=== PATIENT | female | born 1970 | race Caucasian/White ===

== ENCOUNTER → 2018-07-18 16:33 | Outpatient (CLI) | payer OTHER, SELFPAY ==
[2018-07-24 10:52] LABS: HPV Reflexed? NOT INDICATED
== END ==
PROVIDERS: Visit Provider Obstetrics & Gynecology
DX: Z12.4 Encounter for screening for malignant neoplasm of cervix (principal)
CPT/HCPCS: 88175; G0145

== ENCOUNTER → 2018-09-03 14:33 | Outpatient (CLI) | payer OTHER, SELFPAY ==
--- NOTE | 2018-09-03 14:36 | BI_ITS ---
MAMMOGRAPHY - BILATERAL SCREENING REASON FOR EXAM: Female, 47 years old. Routine annual screening examination. PERTINENT HISTORY: Mother with breast cancer. Aunt with breast cancer. TECHNIQUE: Digital bilateral breast nick (3D mammographic acquisition) in the CC and MLO projections. 2-D mediolateral oblique (MLO) and craniocaudad (CC) views of both breasts were obtained. CAD: Full Field Digital Mammography with Computer Added Detection was performed. COMPARISON: Comparison is made with prior study dated March 30, 2015 and March 12, 2013. FINDINGS: Breast Composition: The breasts are heterogeneously dense, which may obscure small masses. There are no dominant masses or suspicious calcifications. No other significant abnormalities are identified. There has been no significant change since the prior study. BI/SCREENING MAMM (CAD), BILAT IMPRESSION: Stable bilateral screening mammogram. Yearly follow-up mammogram recommended. (A) ASSESSMENT CATEGORY: BIRADS Category 1: Negative. A letter regarding these results will be sent to the patient by the facility within 30 days. Approximately 10% of breast cancers are not detected by mammography. A normal mammogram should not delay biopsy of a clinically suspicious abnormality. [id number] Electronically Signed: Naveen Jenkins MD at 15:49 EST Tel [phone], Service support ,
== END ==
PROVIDERS: Family Provider Family Medicine; PCP Family Medicine; Referring Provider Obstetrics & Gynecology; Visit Provider Obstetrics & Gynecology
DX: Z12.31 Encounter for screening mammogram for malignant neoplasm of breast (principal)
CPT/HCPCS: 77063; 77067

== ENCOUNTER → 2019-02-22 16:10 | Outpatient (CLI) | payer OTHER, SELFPAY ==
[2018-09-12 14:27] VITALS: BMI 28.2
[2019-02-22 18:12] LABS: Hemoglobin A1c 5.5 % (4.2-6.3); Thyroid Stim Hormone (TSH) 3.86 uIU/mL (0.358-3.74)
== END ==
PROVIDERS: Family Provider Family Medicine; PCP Family Medicine; Referring Provider Family Medicine; Visit Provider Family Medicine
DX: E03.9 Hypothyroidism, unspecified (principal); R51 Headache
CPT/HCPCS: 36415; 83036; 84443

== ENCOUNTER → 2020-04-28 15:20 | Outpatient (CLI) | payer OTHER, SELFPAY ==
[2020-04-28 14:52] VITALS: BMI 28.2
[2020-04-28 17:15] LABS: T4 Free Direct 1.21 ng/dL (0.76-1.46)
== END ==
PROVIDERS: PCP Family Medicine; Referring Provider Family Medicine; Visit Provider Family Medicine
DX: E03.9 Hypothyroidism, unspecified (principal)
CPT/HCPCS: 36415; 84439; 84443

== ENCOUNTER → 2020-12-21 | Outpatient (CLI) | payer OTHER, SELFPAY ==
[2020-04-28 14:52] VITALS: BMI 28.2
[2020-12-24 15:43] LABS: HPV Reflexed? NOT INDICATED
== END | disposition home or self-care (01) ==
LOC: LABSPEC 17:07
PROVIDERS: PCP Family Medicine; Visit Provider Obstetrics & Gynecology
DX: Z12.4 Encounter for screening for malignant neoplasm of cervix (principal)
CPT/HCPCS: 88175; G0145

== ENCOUNTER → 2020-12-31 14:11 | Outpatient (CLI) | payer OTHER, SELFPAY ==
[2020-12-29 16:11] VITALS: BMI 28.5
[2020-12-31 15:56] LABS: Cholesterol 228 mg/dL (200); Follicle Stimulating Hormone 3.5 mIU/mL; High Density Lipoprotein 75 mg/dL; Luteinizing Hormone 4.4 mIU/mL; Thyroid Stim Hormone (TSH) 4.06 uIU/mL (0.358-3.74); Triglycerides 195 mg/dL; Very Low Density Lipoprotein 39 mg/dL (5-40)
== END ==
PROVIDERS: PCP Family Medicine; Referring Provider Family Medicine; Visit Provider Family Medicine
DX: N95.1 Menopausal and female climacteric states (principal); E03.9 Hypothyroidism, unspecified; E78.5 Hyperlipidemia, unspecified
CPT/HCPCS: 36415; 80061; 83001; 83002; 84443

== ENCOUNTER → 2021-01-13 15:36 | Outpatient (CLI) | payer OTHER, SELFPAY ==
[2020-12-29 16:11] VITALS: BMI 28.5
--- NOTE | 2021-01-13 15:37 | BI_ITS ---
MAMMOGRAPHY - BILATERAL SCREENING REASON FOR EXAM: Female, 50 years old. Routine annual screening examination. PERTINENT HISTORY: Grandmother with breast cancer. TECHNIQUE: Digital bilateral breast sterling (3D mammographic acquisition) in the CC and MLO projections. 2-D mediolateral oblique (MLO) and craniocaudad (CC) views of both breasts were obtained. CAD: Full Field Digital Mammography with Computer Added Detection was performed. COMPARISON: Comparison is made with prior study dated 09/03/2018 and 03/30/2015. FINDINGS: Breast Composition: The breasts are heterogeneously dense, which may obscure small masses. There are no dominant masses or suspicious calcifications. No other significant abnormalities are identified. There has been no significant change since the prior study. BI/SCRN MAMM (CAD)W/STERLING BILAT IMPRESSION: Stable bilateral screening mammogram. Yearly follow-up mammogram recommended. (A) ASSESSMENT CATEGORY: BIRADS Category 1: Negative. A letter regarding these results will be sent to the patient by the facility within 30 days. Approximately 10% of breast cancers are not detected by mammography. A normal mammogram should not delay biopsy of a clinically suspicious abnormality. [id number] Electronically Signed: Naveen Jenkins MD at 8:01 EDT , Service support ,
== END ==
PROVIDERS: PCP Family Medicine; Referring Provider Obstetrics & Gynecology; Visit Provider Obstetrics & Gynecology
DX: Z12.31 Encounter for screening mammogram for malignant neoplasm of breast (principal); Z80.3 Family history of malignant neoplasm of breast
CPT/HCPCS: 77063; 77067

== ENCOUNTER → 2021-06-03 12:42 | Outpatient (CLI) | payer OTHER, SELFPAY ==
[2021-06-03 11:26] VITALS: BMI 28.5
--- NOTE | 2021-06-03 12:46 | RAD_ITS ---
STUDY: X-RAY - RIGHT FOOT CLINICAL: Medial right foot pain for almost a month and a half, no specific injury. TECHNIQUE: 3 view(s) of the foot. COMPARISON: None. FINDINGS: There is a small plantar calcaneal enthesophyte. Otherwise, unremarkable talus, calcaneus, and tarsal bones. Normal visualized subtalar, talonavicular, calcaneocuboid, tarsal and tarsometatarsal articulations. Normal metatarsi. Normal metatarsophalangeal joint of the great toe. Normal tibial and fibular sesamoid bones. Normal interphalangeal joint of the great toe. Normal phalanges of the great toe. Normal second through fifth metatarsophalangeal joints. Normal interphalangeal joints and phalanges of the lesser toes. The soft tissue structures are unremarkable. RAD/Foot min 3 Views IMPRESSION: Small plantar calcaneal enthesophyte. Otherwise, unremarkable x-ray examination of the right foot. Electronically Signed: Cachorro Tolentino MD at 13:16 EDT Tel , Service support ,
== END ==
PROVIDERS: PCP Family Medicine; Referring Provider Family Medicine; Visit Provider Family Medicine
DX: M79.671 Pain in right foot (principal)
CPT/HCPCS: 73630

== ENCOUNTER 2021-12-02 13:03 | Outpatient (CLI) | payer BC, SELFPAY ==
[2021-12-02 14:19] LABS: T4 Free Direct 1.14 ng/dL (0.76-1.46); Thyroid Stim Hormone (TSH) 4.45 uIU/mL (0.358-3.74)
== END 2021-12-02 23:59 | disposition short-term general hospital (02) ==
LOC: BIMLAB 13:04
PROVIDERS: PCP Family Medicine; Referring Provider Family Medicine; Visit Provider Family Medicine
DX: E03.9 Hypothyroidism, unspecified (principal)
CPT/HCPCS: 36415; 82306; 84439; 84443

== ENCOUNTER → 2022-02-22 | Outpatient (CLI) | payer BC, SELFPAY ==
--- NOTE | 2022-02-22 16:02 | BI_ITS ---
MAMMOGRAPHY - BILATERAL SCREENING REASON FOR EXAM: Female, 51 years old. Routine annual screening examination. PERTINENT HISTORY: Mother with breast cancer. TECHNIQUE: Digital bilateral breast sterling (3D mammographic acquisition) in the CC and MLO projections. 2-D mediolateral oblique (MLO) and craniocaudad (CC) views of both breasts were obtained. CAD: Full Field Digital Mammography with Computer Added Detection was performed. COMPARISON: Comparison is made with prior study dated 01/13/2021 and 09/03/2018. FINDINGS: Breast Composition: The breasts are heterogeneously dense, which may obscure small masses. There are no dominant masses or suspicious calcifications. No other significant abnormalities are identified. There has been no significant change since the prior study. BI/SCRN MAMM (CAD)W/STERLING BILAT IMPRESSION: Stable bilateral screening mammogram. Yearly follow-up mammogram recommended. (A) ASSESSMENT CATEGORY: BIRADS Category 1: Negative. A letter regarding these results will be sent to the patient by the facility within 30 days. Approximately 10% of breast cancers are not detected by mammography. A normal mammogram should not delay biopsy of a clinically suspicious abnormality. [id number] Electronically Signed: Naveen Jenkins MD at 8:44 EDT ,
== END | disposition home or self-care (01) ==
LOC: OPBI 15:56
PROVIDERS: PCP Family Medicine; Visit Provider Obstetrics & Gynecology
DX: Z12.31 Encounter for screening mammogram for malignant neoplasm of breast (principal)
CPT/HCPCS: 77063; 77067

== ENCOUNTER → 2023-01-26 | Outpatient (CLI) | payer BC, SELFPAY ==
[2023-01-26 17:24] LABS: ALB/GLOB Ratio 0.9 RATIO (0.9-2.4); AST(SGOT) 17 U/L (15-37); Alanine Aminotransfer ALT/SGPT 31 U/L (13-56); Albumin, Serum 3.3 g/dL (3.2-5.0); Alkaline Phosphatase 68 U/L (45-117); Anion Gap 6 (5-15); BUN 14 mg/dL (7-18); BUN/Creat Ratio 19.4 RATIO (10-20); Calcium,Total 8.7 mg/dL (8.5-10.1); Chloride 107 mmol/L (98-107); Creatinine, Serum 0.72 mg/dL (0.55-1.02); EST Glomerular Filtration Rate 91 mL/min (>60); Est Glom Filt Rate - Afr Amer 110 mL/min (>60); Globulin 3.7 g/dL (2.2-4.2); Glucose 105 mg/dL (74-106); Potassium 3.5 mmol/L (3.5-5.1); Sodium Level 138 mmol/L (136-145); T4 Free Direct 1.22 ng/dL (0.76-1.46); Thyroid Stim Hormone (TSH) 1.84 uIU/mL (0.358-3.74)
== END | disposition home or self-care (01) ==
LOC: BIMLAB 14:52
PROVIDERS: PCP Family Medicine; Visit Provider Family Medicine
DX: E03.9 Hypothyroidism, unspecified (principal)
CPT/HCPCS: 36415; 80053; 84439; 84443

== ENCOUNTER → 2023-02-23 | Outpatient (CLI) | payer BC, SELFPAY ==
--- NOTE | 2023-02-23 15:04 | BI_ITS ---
MAMMOGRAPHY - BILATERAL SCREENING REASON FOR EXAM: Female, 52 years old. Routine annual screening examination. PERTINENT HISTORY: Mother with breast cancer. TECHNIQUE: Digital bilateral breast sterling (3D mammographic acquisition) in the CC and MLO projections. 2-D mediolateral oblique (MLO) and craniocaudad (CC) views of both breasts were obtained. CAD: Full Field Digital Mammography with Computer Added Detection was performed. COMPARISON: Comparison is made with prior study dated February 22, 2022 and January 13, 2021. FINDINGS: Breast Composition: The breasts are heterogeneously dense, which may obscure small masses. There are no dominant masses or suspicious calcifications. No other significant abnormalities are identified. There has been no significant change since the prior study. BI/SCRN MAMM (CAD)W/STERLING BILAT IMPRESSION: Stable bilateral screening mammogram. Yearly follow-up mammogram recommended. (A) ASSESSMENT CATEGORY: BIRADS Category 1: Negative. A letter regarding these results will be sent to the patient by the facility within 30 days. Approximately 10% of breast cancers are not detected by mammography. A normal mammogram should not delay biopsy of a clinically suspicious abnormality. [id number] Electronically Signed: Naveen Jenkins MD at 8:49 EDT ,
== END | disposition home or self-care (01) ==
LOC: OPBI 15:02
PROVIDERS: PCP Family Medicine; Referring Provider Nurse Practitioner Women's Health; Visit Provider Nurse Practitioner Women's Health
DX: Z12.31 Encounter for screening mammogram for malignant neoplasm of breast (principal)
CPT/HCPCS: 77063; 77067

== ENCOUNTER → 2023-11-01 | Outpatient (CLI) | payer BC, SELFPAY ==
[2023-11-01 17:17] LABS: ALB/GLOB Ratio 0.8 RATIO (0.9-2.4); AST(SGOT) 24 U/L (15-37); Alanine Aminotransfer ALT/SGPT 27 U/L (13-56); Albumin, Serum 3.4 g/dL (3.2-5.0); Alkaline Phosphatase 78 U/L (45-117); Anion Gap 7 (5-15); BUN 10 mg/dL (7-18); BUN/Creat Ratio 17.2 RATIO (10-20); Calcium,Total 8.5 mg/dL (8.5-10.1); Chloride 106 mmol/L (98-107); Cholesterol 225 mg/dL (200); Creatinine, Serum 0.58 mg/dL (0.55-1.02); EST Glomerular Filtration Rate 116 mL/min (>60); Est Glom Filt Rate - Afr Amer 140 mL/min (>60); Glucose 84 mg/dL (74-106); High Density Lipoprotein 69 mg/dL; Potassium 3.7 mmol/L (3.5-5.1); Protein, Total 7.4 g/dL (6.4-8.2); Sodium Level 139 mmol/L (136-145); Thyroid Stim Hormone (TSH) 2.55 uIU/mL (0.358-3.74); Triglycerides 168 mg/dL; Very Low Density Lipoprotein 34 mg/dL (5-40)
== END | disposition home or self-care (01) ==
PROVIDERS: PCP Family Medicine; Visit Provider Family Medicine
DX: E03.9 Hypothyroidism, unspecified (principal); G43.909 Migraine, unspecified, not intractable, without status migrainosus
CPT/HCPCS: 36415; 80053; 80061; 84443

== ENCOUNTER → 2024-03-12 | Outpatient (CLI) | payer BC, SELFPAY ==
--- NOTE | 2024-03-12 09:44 | BI_ITS ---
MAMMOGRAPHY - BILATERAL SCREENING REASON FOR EXAM: Female, 53 years old. Routine annual screening examination. PERTINENT HISTORY: Mother with breast cancer. Aunt with breast cancer. TECHNIQUE: Digital bilateral breast sterling (3D mammographic acquisition) in the CC and MLO projections. 2-D mediolateral oblique (MLO) and craniocaudad (CC) views of both breasts were obtained. CAD: Full Field Digital Mammography with Computer Added Detection was performed. COMPARISON: Comparison is made with prior study February 23, 2023 and February 22, 2022 FINDINGS: Breast Composition: The breasts are heterogeneously dense, which may obscure small masses. There are no dominant masses or suspicious calcifications. No other significant abnormalities are identified. There has been no significant change since the prior study. BI/SCRN MAMM (CAD)W/STERLING BILAT IMPRESSION: Stable bilateral screening mammogram. Yearly follow-up mammogram recommended. (A) ASSESSMENT CATEGORY: BIRADS Category 1: Negative. A letter regarding these results will be sent to the patient by the facility within 30 days. Approximately 10% of breast cancers are not detected by mammography. A normal mammogram should not delay biopsy of a clinically suspicious abnormality. [id number] Electronically Signed: Naveen Jenkins MD at 12:28 EDT ,
== END | disposition home or self-care (01) ==
LOC: OPBI 09:43
PROVIDERS: PCP Family Medicine; Referring Provider Nurse Practitioner Family; Visit Provider Nurse Practitioner Family
DX: Z12.31 Encounter for screening mammogram for malignant neoplasm of breast (principal)
CPT/HCPCS: 77063; 77067

== ENCOUNTER → 2024-11-06 | Outpatient (CLI) | payer BC, SELFPAY | END | disposition home or self-care (01) | LOC: BIMLAB 15:08 | PROVIDERS: PCP Family Medicine; Referring Provider Family Medicine; Visit Provider Family Medicine | DX: E03.9 Hypothyroidism, unspecified (principal) | CPT/HCPCS: 36415; 84443 ==

== ENCOUNTER → 2025-04-16 | Outpatient (CLI) | payer BC, SELFPAY ==
--- NOTE | 2025-04-16 11:47 | BI_ITS ---
EXAM: SCRN MAMM (CAD)W/STERLING BILAT DATE: 04/16/2025 CLINICAL HISTORY: F, Age 54 y/o , SCREENING BREAST CANCER RISK ASSESSMENT: Not calculated at this time TECHNIQUE: Bilateral screening digital breast tomosynthesis with 2D and 3D images. Computer aided detection. COMPARISON: Prior exam(s) dated 03/12/2024, 02/23/2023, 02/22/2022. FINDINGS: TISSUE DENSITY: The breast tissue is composed of scattered areas of fibroglandular density. Bilateral Breast Mammographic Findings: No significant masses, calcifications or other abnormalities are identified. BI/SCRN MAMM (CAD)W/STERLING BILAT IMPRESSION: There is no mammographic evidence of malignancy. OVERALL FINAL ASSESSMENT BI-RADS 1: NEGATIVE. RECOMMEND ANNUAL MAMMOGRAPHIC SCREENING. RECOMMENDATION: Routine annual follow-up in 1 Year A letter with findings and recommendations will be mailed to the patient. Reading Location: [id number]
--- OUTSIDE RECORDS SUMMARY | 2025-04-16 21:32 | XMS RPT_ITS | CCD ---
Author Organization [facility] Team Providers Care [employer] Developer Name Role Phone Dr. Jovani Wheeler Primary Care Provider Dr. Jovani Wheeler Attending Provider [phone] Dr. Jovani Wheeler Referring Provider [phone] Unavailable Primary Care Provider Unavailronnie e KOKO, CORRINE Attending Unavailable Liam, Jovani R Referring Unavailable Brown, Jovani R Primary Care Unavailable Brown, Jovani R Attending Unavailable Liam, Jovani R Primary Care Unavailable Jovani Wheeler Attending Unavailable Liam, Jovani R Referring Unavailable Brown, Jovani R Primary Care Unavailable [place] TIRE CHANGER, Corrine Attending Unavailable Koko TIRE CHANGER, Corrine Referring Unavailable Brown, Jovani R Referring Unavailable Brown, Jovani R Primary Care Unavailable Randal Saeed Attending Unavailable Jovani Wheeler Referring Unavailable Liam, Jovani R Primary Care Unavailable Jovani Wheeler R Attending Unavailable Medications Current Medications Medication Drug Class(es) Dates Sig (Normalized) Sig (Original) brain ocatne (3 sources) Start: 12-02-2021 brain ocatne A ctive PO December 02, 2021 1:40pm Start: 12-02-2021 End: 01-26-2023 brain ocatne Discontinued PO December 02, 2021 12:00am January 26, 2023 1:28pm Start: 12-02-2021 End: 01-26-2023 brain ocatne Discontinued PO December 02, 2021 1:00am January 26, 2023 2:28pm cholecalciferol 0.05 mg oral capsule (6 sources) Vitamin D Start: 12-29-2020 Cholecalcifero l, Vitamin D3, 50 mcg (2,000 unit) cap Take 50 mcg by mouth. 12/29/2020 Active coconut oil supplement (3 sources) Start: 06-03-2021 coconut oil ragland pplement Active PO June 03, 2021 11:23am Start: 06-03-2021 End: 01-26-2023 coconut oil supplement Disco ntinued PO June 02, 2021 11:00pm January 26, 2023 1:29pm Start: 06-03-2021 End: 01-26-2023 coconut oil supplement Disco ntinued PO June 03, 2021 12:00am January 26, 2023 2:29pm Collagen (3 sources) Start: 06-03-2021 collagen Activ e PO June 03, 2021 11:22am Start: 06-03-2021 collagen Activ e PO June 02, 2021 11:00pm Start: 06-03-2021 collagen Activ e PO June 03, 2021 12:00am COLLAGEN, BOVINE, TOPICAL (3 sources) Start: 06-03-2021 COLLAGEN, BOVI NE, TOPICAL Take by mouth. 06/03/2021 Active Start: 06-03-2021 COLLAGEN, BOVI NE, TOPICAL Take by mouth. 0 06/03/2021 Active cyanocobalamin, vitamin B-12 , (VITAMIN B-12 ORAL) (3 sources) cyanocobalamin, vitamin B-12, (VITAMIN B-12 ORAL) Take by mouth. Active cyanocobalamin, vitamin B-12, (VITAMIN B-12 ORAL) Take by mouth. 0 Active Desogestrel / Ethinyl Estradiol (8 sources) Progestin, Estrogen Start: 02-25-2025 End: 01-27-2026 take 1 tablet by mouth once KARIVA, 28, 0.15-0.02 mgx21 /0.01 mg x 5 per tablet Take 1 tablet by mouth every afternoon. 84 tablet 3 02/25/2025 01/27/2026 Active Start: 02-20-2024 End: 02-25-2025 take 1 tablet by mouth once KARIVA, 28, 0.15-0.02 mgx2 1 /0.01 mg x 5 per tablet Take 1 tablet by mouth every afternoon. 84 tablet 3 02/20/2024 02/25/2025 Discontinued Start: 02-20-2024 End: 01-21-2025 take 1 tablet by mouth once KARIVA, 28, 0.15-0.02 mgx2 1 /0.01 mg x 5 per tablet Take 1 tablet by mouth every afternoon. 84 tablet 3 02/20/2024 01/21/2025 Active Start: 10-29-2023 End: 02-20-2024 take 1 tablet by mouth once KARIVA, 28, 0.15-0.02 mgx2 1 /0.01 mg x 5 per tablet Take 1 tablet by mouth every afternoon. 0 10/29/2023 02/20/2024 Discontinued Start: 02-20-2018 take 0.15 tablet by mouth once daily Desog-E.Estradiol/E.Estradiol (Viorele (28)) 0.15-0.02 mgx21 /0.01 mg x 5 tablet Active 1 TABLET PO daily February 20, 2018 2:37pm Start: 02-20-2018 take 0.15 tablet by mouth once daily Desog-E.Estradiol/E.Estradiol (Viorele (28)) 0.15-0.02 mgx21 /0.01 mg x 5 tablet Active 1 TABLET PO daily February 19, 2018 11:00pm Start: 02-20-2018 take 0.15 tablet by mouth once daily Desog-E.Estradiol/E.Estradiol (Viorele (28)) 0.15-0.02 mgx21 /0.01 mg x 5 tablet Active 1 TABLET PO daily February 20, 2018 12:00am levothyroxine sodium 0.125 mg oral tablet (20 sources) l-Thyroxine Start: 01-30-2024 take 1 tablet by mouth once levothyroxine (SYNTHROID) 125 mcg tablet Take 1 tablet by mouth every afternoon. 01/30/2024 Active Start: 01-05-2021 End: 04-18-2023 take 125 ug by mouth once daily Levothyroxine Active 1 25 MCG PO DAILY April 18, 2023 10:48am Start: 12-07-2018 End: 01-05-2021 take 112 ug by mouth once daily Levothyroxine Disconti nued 112 MCG PO DAILY May 12, 2020 7:17am January 05, 2021 12:35pm Start: 02-20-2018 End: 12-07-2018 take 1 capsule by mouth once daily levothyroxine 112 mcg capsule Discontinued 112 MCG PO daily December 04, 2018 2:27pm December 07, 2018 4:54pm Start: 12-28-2016 End: 02-20-2018 take 100 ug by mouth once daily Levothyroxine Disconti nued 100 MCG PO DAILY December 28, 2016 12:00am February 20, 2018 1:36pm Magnesium (6 sources) Start: 12-29-2020 take 250 mg by mouth once daily Magnesium Active 250 MG PO DAILY December 29, 2020 5:10pm Start: 12-29-2020 Magnesium 250 mg tab Take 250 mg by mouth. 12/29/2020 Active Start: 12-29-2020 Magnesium 250 mg tab Take 250 mg by mouth. 0 12/29/2020 Active Start: 12-29-2020 take 250 mg by mouth once francisco y Magnesium Active 250 MG PO DAILY December 29, 2020 12:00am Start: 12-29-2020 take 250 mg by mouth once francisco y Magnesium Active 250 MG PO DAILY December 29, 2020 1:00am mecobalamin (2 sources) Start: 01-26-2023 take 5000 ug by mout h once daily Mecobalamin (Vitamin B12) Active 5000 MCG PO DAILY January 25, 2023 11:00pm Start: 01-26-2023 take 5000 ug by mout h once daily Mecobalamin (Vitamin B12) Active 5000 MCG PO DAILY January 26, 2023 12:00am lila quercetin (3 sources) Start: 12-02-2021 lila quercetin Active PO December 02, 2021 1:39pm Start: 12-02-2021 End: 01-26-2023 lila quercetin Discontinued PO December 02, 2021 12:00am January 26, 2023 1:29pm Start: 12-02-2021 End: 01-26-2023 lila quercetin Discontinued PO December 02, 2021 1:00am January 26, 2023 2:29pm multivitamin,oa-etji-obwvbdq s (3 sources) Start: 12-29-2020 take 1 tablet by mouth once daily multivitamin,fz-lrqd-tlmkmqxs Active 1 TABLET PO DAILY December 29, 2020 5:09pm Start: 12-29-2020 End: 01-26-2023 take 1 tablet by mouth once daily multivitamin,uh-ytez-ykujrmhq Discontinu ed 1 TABLET PO DAILY December 29, 2020 12:00am January 26, 2023 1:29pm Start: 12-29-2020 End: 01-26-2023 take 1 tablet by mouth once daily multivitamin,py-ealp-pcicxufq Discontinu ed 1 TABLET PO DAILY December 29, 2020 1:00am January 26, 2023 2:29pm [place]-3 Fatty Acids (Fish Oil Concentrate) 1,000 mg capsule (3 sources) Start: 12-29-2020 take 1 capsule by mouth once daily [place]-3 Fatty Acids (Fish Oil Concentrate) 1,000 mg capsule Active 1000 MG PO DAILY December 29, 2020 5:10pm Start: 12-29-2020 take 1 capsule by mo uth once daily [place]-3 Fatty Acids (Fish Oil Concentrate) 1,000 mg capsule Active 1000 MG PO DAILY December 29, 2020 12:00am Start: 12-29-2020 take 1 capsule by mo uth once daily [place]-3 Fatty Acids (Fish Oil Concentrate) 1,000 mg capsule Active 1000 MG PO DAILY December 29, 2020 1:00am SUMAtriptan 100 mg oral tablet (20 sources) Serotonin-1b and Serotonin-1d Receptor Agonist Start: 01-30-2024 take 1 tablet by mouth once as needed for headache SUMAtriptan (IMITREX) 100 mg tablet TAKE 1 TABLET BY MOUTH ONCE NEEDED FOR MIGRAINE HEADACHE 01/30/2024 Active Start: 02-20-2018 End: 04-18-2023 take 100 mg by mouth once Sumatriptan Succinate Active 100 MG PO ONCE 9 April 18, 2023 10:48am Vitamin B Complex (3 sources) Start: 12-29-2020 take 1 tablet by gustavo once daily Vitamin B Complex Active 1 TABLET PO DAILY December 29, 2020 5:10pm Start: 12-29-2020 take 1 tablet by mouth once da macey Vitamin B Complex Active 1 TABLET PO DAILY December 29, 2020 12:00am Start: 12-29-2020 take 1 tablet by mouth once da macey Vitamin B Complex Active 1 TABLET PO DAILY December 29, 2020 1:00am VITAMIN B COMPLEX ORAL (3 sources) Start: 12-29-2020 VITAMIN B COMP RAMAKRISHNA ORAL Take by mouth. 12/29/2020 Active Start: 12-29-2020 VITAMIN B COMP RAMAKRISHNA ORAL Take by mouth. 0 12/29/2020 Active Zinc (3 sources) Start: 01-26-2023 ZINC ORAL Take by mouth. 01/26/2023 Active Start: 01-26-2023 ZINC ORAL Take by mouth. 0 01/26/2023 Active zinc gluconate 50 mg oral tablet (2 sources) Start: 01-26-2023 take 50 mg by mouth once daily Zinc Gluconate Active 50 MG PO DAILY January 25, 2023 11:00pm Completed/Discontinued Medications Medication Drug Class(es) Dates Sig (Normalized) Sig (Original) ubrogepant 100 mg oral tablet (6 sources) Start: 12-02-2021 End: 06-28-2022 take 1 tablet by mouth once Ubrogepant (Ubrelvy) 100 mg tablet Discontinued 100 MG PO ONCE December 02, 2021 12:00am June 28, 2022 3:02pm as a single dose; may repeat once in >=2 hours after first dose if needed Problems Active Problems Problem Classification Problem Date Documented Date Episodic/Chronic Adjustment disorders (2 sources) Family tension; Translations: [Reaction to severe stress, unspecified] 11-01-2023 Chronic Conditions associated with dizziness or vertigo (3 sources) Lightheadedness; Translations: [Dizziness and giddiness] 01-26-2023 Episodic Contraceptive and procreative management (3 sources) Oral contraception; Translations: [Encounter for surveillance of contraceptive pills] Onset: 02-25-2025 02-20-2024 Episodic Headache; including migraine (6 sources) Migraine; Translations: [Migraine, unspecified, not intractable, without status migrainosus] Onset: 11-06-2024 02-20-2018 Chronic Headache; including migraine (3 sources) Frequent headache; Translations: [Frequent headaches] 02-20-2018 Episodic Other connective tissue disease (3 sources) Foot pain; Translations: [Pain in right foot] 06-03-2021 Episodic Other screening for suspected conditions (not mental disorders or infectious disease) (8 sources) Patient encounter status; Translations: [Encounter for screening for malignant neoplasm of colon] Onset: 02-25-2025 01-26-2023 Episodic Other skin disorders (3 sources) Vitiligo; Translations: [Vitiligo] 09-12-2018 Episodic Other upper respiratory disease (3 sources) Seasonal allergic rhinitis; Translations: [Other seasonal allergic rhinitis] 02-20-2018 Chronic Spondylosis; intervertebral disc disorders; other back problems (4 sources) Chronic low back pain; Translations: [Chronic low back pain] Episodic Thyroid disorders (7 sources) Hypothyroidism; Translations: [Hypothyroidism, unspecified] Onset: 11-26-2024 Chronic Viral infection (2 sources) Verruca plantaris; Translations: [Plantar wart] 06-28-2022 Episodic Past or Other Problems Problem Classification Problem Date Documented Da te Episodic/Chronic Immunizations and screening for infectious disease (1 source) Encounter for immunization; Translations: [Encounter for immunization] Onset: 05-08-2024 Episodic Results Test Name Value Interpretation Reference Range Facility [facility] 02-26-2025 TRI Telephone (OBGYWM) MARIA T BARRERA ([id number]) 1970 F Date Time Provider Department 02/26/25 CORRINE SUTHERLAND OBYADIEL During your visit today, we recorded the following information about you: Rissa Rios LPN 02/26/2025 4:53 PM Signed Faxed signed Rx mammogram to [facility] [phone]. Rissa Rios LPN Allergies As of Date: 02/26/2025 (No Known Allergies) Date Reviewed: 02/25/2025 Reviewed by: Corrine Sutherland APRN.MASTER FIRE CONTROL TECHNICIAN - Fully Assessed Prescriptions as of 02/26/2025 - KARIVA, 28, 0.15-0.02 mgx21 /0.01 mg x 5 per tablet Take 1 tablet by mouth every afternoon. - SUMAtriptan (IMITREX) 100 mg tablet TAKE 1 TABLET BY MOUTH ONCE NEEDED FOR MIGRAINE HEADACHE - levothyroxine (SYNTHROID) 125 mcg tablet Take 1 tablet by mouth every afternoon. - VITAMIN B COMPLEX ORAL Take by mouth. - Cholecalciferol, Vitamin D3, 50 mcg (2,000 unit) cap Take 50 mcg by mouth. - COLLAGEN, BOVINE, TOPICAL Take by mouth. - ZINC ORAL Take by mouth. - Magnesium 250 mg tab Take 250 mg by mouth. - cyanocobalamin, vitamin B-12, (VITAMIN B-12 ORAL) Take by mouth. Problem List As Of Date: 02/26/2025 (None) Encounter Status:Closed by RISSA RIOS on 02/26/25 Normal [facility] CNOVon 02-25-2025 CNOV Office Visit (OBGYWM) MARIA T BARRERA ([id number]) 1970 F Date Time Provider Department 02/25/25 3:00 PM CORRINE SUTHERLAND OBGYWScooter During your visit today, we recorded the following information about you: Blood pressure Weight Height 122/76 76.2 kg 1.702 m Corrine Sutherland APRN.MASTER FIRE CONTROL TECHNICIAN 02/25/2025 3:24 PM Signed Patient declined clinical analystPoonam Live is a 54 year old who presents for an annual gynecologic exam without complaints. Postmenopausal: No. Menstrual cycle every 01/30/2025 28 day cycles with flow 1-2 days HRT use: N/A . Contraception: Pill HPV vaccine: No Last pap smear: 02/20/2024, normal HPV: 02/20/24 negative History of abnormal pap: Yes, 2003 Leep: Yes: 2003 Last mammogram: 2023 normal @ [facility] History of abnormal mammogram: No Pt reported Sexually active: Yes OB History Gravida2 Para2 Term2 Preterm0 AB0 Living2 SAB0 IAB0 Ectopic0 Multiple0 Live Births2 FAMILY HISTORY Problem Relation Age of Onset Breast Cancer Maternal Grandmother 40 other (lung disease) Maternal Grandfather smoker Skin Cancer Maternal Grandfather SOCIAL HISTORY Social History Tobacco Use Smoking status: Never Smokeless tobacco: Never Vaping Use Vaping status: Never Used Substance Use Topics Alcohol use: Yes Drug use: Never REVIEW OF SYSTEMS Abdomen: No abdominal pain, nausea, vomiting, diarrhea, or constipation. No bloating, early satiety, indigestion, or increased flatulence. Bladder: No dysuria, gross hematuria, urinary frequency, urinary urgency, or incontinence Breast: No breast lumps, nipple d/c, overlying skin changes, redness or skin retraction Allergies and current medication updated:Yes SENSITIVE EXAM: The sensitive examination was discussed with the Patient or Patient's Authorized Closing Supervisor. As applicable, any other physician, advance practice provider, medical student, or other health professional student that will be observing or involved in the sensitive examination for educational or training purposes was discussed with the Patient or Authorized Closing Supervisor. The Patient or Authorized Closing Supervisor has agreed to proceed with the sensitive examination. (Sensitive examination includes inspection and/or palpation of the breasts, pelvis, prostate and anorectal regions). EXAM: BP 122/76 Ht 5' 7 (1.70m) Wt 168 lb (76.2kg) LMP 01/31/2024 BMI 26.31 kg/(m2). GENERAL: pleasant, female in no apparent distress HEENT: Normocephalic, atraumatic, mucus membranes moist, and no lesions DERMATOLOGY: Normal, without lesions, non-icteric, and non-hirsute BREAST: soft, non-tender, symmetric, no dominant mass, normal nipple-areolar complex, no lymphadenopathy, and no nipple discharge CHEST: Normal inspiratory effort ABDOMEN: soft, non-tender, and no masses PELVIC: external genitalia normal, normal Bartholin's glands, urethra, Yeager's glands, no vulvar lesions, no cervical lesions, physiologic discharge present, normal appearing perineal body and perianal region BIMANUAL: uterus normal size, shape and consistency, no adnexal masses, and non-tender RECTOVAGINAL: deferred. NEURO: alert and oriented x3,exam grossly non-focal EXTREMITIES: normal ASSESSMENT/PLAN: 1) Health maintenance: Pap/HPV up to date. Mammogram ordered Nutrition, exercise and routine health maintenance exams reviewed. Calcium/Vitamin D supplementation information provided. Colon cancer screening: up to date with screening due 2027 2) Follow up one year or sooner as needed Corrine Sutherland APRN.NITHIN Allergies As of Date: 02/25/2025 (No Known Allergies) Date Reviewed: 02/25/2025 Reviewed by: Corrine Sutherland APRN.MASTER FIRE CONTROL TECHNICIAN - Fully Assessed Reason for Visit: Well Woman [[id number]] Primary Visit Diagnosis:Encounter for gynecological examination (general) (routine) without abnormal findings [Z01.419] Other Visit Diagnoses:Encounter for screening mammogram for breast cancer [Z12.31] Encounter for surveillance of contraceptive pills [Z30.41] Order(s):KARIVA, 28, 0.15-0.02 mgx21 /0.01 mg x 5 per tabletTake 1 tablet by mouth every afternoon.Disp: 84 tabletRfl: 3 Prescriptions as of 02/25/2025 - KARIVA, 28, 0.15-0.02 mgx21 /0.01 mg x 5 per tablet Take 1 tablet by mouth every afternoon. - SUMAtriptan (IMITREX) 100 mg tablet TAKE 1 TABLET BY MOUTH ONCE NEEDED FOR MIGRAINE HEADACHE - levothyroxine (SYNTHROID) 125 mcg tablet Take 1 tablet by mouth every afternoon. - VITAMIN B COMPLEX ORAL Take by mouth. - Cholecalciferol, Vitamin D3, 50 mcg (2,000 unit) cap Take 50 mcg by mouth. - COLLAGEN, BOVINE, TOPICAL Take by mouth. - ZINC ORAL Take by mouth. - Magnesium 250 mg tab Take 250 mg by mouth. - cyanocobalamin, vitamin B-12, (VITAMIN B-12 ORAL) Take by mouth. Problem List As Of Date: 02/25/2025 (None) Prescriptions ordered this encounter Disp Refills Start End (more content not included)... Normal [facility] Internal Medicine Office Vis iton 11-06-2024 Internal Medicine Office Visit [facility] [address], [place] [address] OFFICE VISIT Date of Service: 11/06/24 MR#: [id number] Acct: [id number] Name: MARIA T BARRERA Rep #: [id number] : 1970 Provider: Dr. Jovani farrell, DO Age/Sex: 53/F [facility] [facility] Status: Signed Intake Vital Signs 05/07/24 10:56 05/08/24 12:38 11/06/24 14:33 Height 5 ft 6 in 5 ft 7 in 5 ft 7 in Weight: 163 lb 171 lb BMI 26.3 26.7 BP 124/80 H 128/70 H Blood Pressure Location Lt brachial Lt brachial Position Sitting Sitting Respiration 16 18 Pulse 88 92 Pulse Source Monitor Monitor Temp 97.6 F L 98.2 F Temp Source Temporal Temporal Pulse Oximetry (%) 98 98 Oxygen Delivery Method room air room air Intake Visit Reasons: 6 m fu Chief Complaint: fmla paper work Industrial Relations Worker Required: No Accompanied by: Self Is patient in pain?: No Allergies No Known Allergies Allergy (Verified 11/06/24 14:30) Medications ???Medication ???Instructions ???Recorded ???Confirmed ???Type cholecalciferol (vitamin D3) 50 50 mcg PO DAILY 12/29/20 11/06/24 History mcg (2,000 unit) capsule magnesium 250 mg tablet 250 mg PO DAILY 12/29/20 11/06/24 History vitamin B complex 1 tab PO DAILY 12/29/20 11/06/24 History collagen PO 06/03/21 11/06/24 History mecobalamin (vitamin B12) 5,000 5,000 mcg PO DAILY 01/26/23 11/06/24 History mcg chewable tablet levothyroxine 125 mcg tablet 125 mcg PO DAILY #90 TABLETS 10/17/24 11/06/24 Rx sumatriptan succinate 100 mg tablet 100 mg PO ONCE PRN migraine 11/06/24 11/06/24 Rx headache #9 tabs Have you fallen in the past year?: No PFSH Medical History Acute foreign body of plantar aspect of right foot Seasonal allergies Hypothyroidism Migraines Frequent headaches Family History Mother Breast cancer Aunt Cancer Uncle Cancer Social History Smoking Status: Never smoker alcohol intake: never substance use type: does not use what type of physical activity do you participate in: none HPI HPI Chief Complaint: fmla paper work Details: MARIA T BARRERA, is a 53 F who presents to the office today for completion of FMLA paperwork in addition she has a rather severe migraine headache and did not take her migraine medicine to work with her she is she has not been able to abort this headache. ROS Const Constitutional: Positive for headache(s); No body ache, excessive sweating, fatigue, fever(s), frequent falls, snoring, weakness, weight change, sleep problems or change in appetite Eyes Eyes: No blurry vision, change in vision, eye pain or Light sensitivity ENT ENT: Positive for headache(s); No abnormal hearing, ear or mastoid pain, tinnitus, nasal congestion, neck pain or sore throat Resp Respiratory: No cough, shortness of breath, snoring or wheezing Cardio Cardiology: No chest pain at rest, chest pain with exertion, excessive sweating, shortness of breath, dyspnea on exertion, lightheadedness, orthopnea or palpitations Gastro GI: No abdominal pain, change in bowel habits, constipation, cramping, diarrhea, nausea/dyspepsia or vomiting Genitourinary-Female : No burning urination, painful urination, urinary incontinence, urinary frequency, blood in urine, abnormal periods or pelvic pain Musc Musculoskeletal: No abnormal gait, joint pain, back pain, limited range of motion, neck pain, numbness, stiffness, tingling or Arthritis Skin Skin: No dry skin, redness, lesions, itchy eyes, rash or wounds Neuro Neurology: Positive for headache(s); No abnormal gait, abnormal hearing, abnormal speech, dizziness, weakness, frequent falls, memory loss, numbness or tingling Psych Psychiatric: No anxiety, No change in appetite, No depression, No memory loss and No Thoughts of harming yourself/Others Endo Endocrine: No cold intolerance, excessive sweating, fatigue, flushing, heat intolerance, increased thirst/drinking, increased hunger or weight change Aller/Imm Allergy/Immunologic: No itchy eyes, seasonal allergy symptoms, hives or wheezing Rex/Lymp Hematologic/Lymphati c: No easy bleeding, easy bruising or enlarged lymph nodes Exam Const General: cooperative, healthy appearing and in distress moderate Nutritional Appearance: average body habitus [facility] Head: normal to inspection Eyes General: appearance normal, both eyes and all related structures Periorbital: periorbital findings normal Eyelids: eyelids normal Conjunctivae: conjunctivae normal Pupils: PERRL and normal by confrontation Neck Neck: normal visual inspection and full ROM Neck mass: No Thyroid: diffusely enlarged Resp Effort Inspection: normal respiratory effort Auscu (more content not included)... Normal [facility] Thyroid Stim Hormone (TSH)on 11-06-2024 TSH 3.540 uIU/mL Normal 0.358-3.740 [facility] Comment on above: Performed By: #### L [phone] #### [facility] [address] [place], [address] Urgent Care Visit Reporton 0 05-08-2024 Urgent Care Visit Report [facility] [address], [address] [place], [place] [address] OFFICE VISIT Date of Service: 05/08/24 MR#: [id number] Acct: [id number] Name: MARIA T BARRERA Rep #: [id number] : 1970 Provider: ROBERT Cosby Age/Sex: 53/F Location: [facility] Status: Signed Intake Vital Signs 05/07/24 10:56 05/08/24 12:38 Height 5 ft 6 in 5 ft 7 in Weight: 163 lb 163 lb BMI 26.3 25.5 BP 124/80 H 132/72 H Blood Pressure Location Lt brachial Lt brachial Position Sitting Sitting Respiration 16 16 Pulse 88 89 Pulse Source Monitor NIBP Temp 97.6 F L 98.2 F Temp Source Temporal Temporal Pulse Oximetry (%) 98 98 Oxygen Delivery Method room air room air Intake Visit Reasons: R FOOT/CONCERN FOR FB Chief Complaint: FB right foot Industrial Relations Worker Required: No Is patient in pain?: Yes Allergies No Known Allergies Allergy (Verified 05/08/24 12:39) Medications ???Medication ???Instructions ???Recorded ???Confirmed ???Type cholecalciferol (vitamin D3) 50 50 mcg PO DAILY 12/29/20 05/08/24 History mcg (2,000 unit) capsule magnesium 250 mg tablet 250 mg PO DAILY 12/29/20 05/08/24 History vitamin B complex 1 tab PO DAILY 12/29/20 05/08/24 History collagen PO 06/03/21 05/08/24 History mecobalamin (vitamin B12) 5,000 5,000 mcg PO DAILY 01/26/23 05/08/24 History mcg chewable tablet levothyroxine 125 mcg tablet 125 mcg PO DAILY #90 tabs 01/30/24 05/08/24 Rx sumatriptan succinate 100 mg tablet 100 mg PO ONCE PRN migraine 04/02/24 07/10/24 Rx headache #9 tabs Is last menstrual period known: No Post menopausal: No Patient : No Have you fallen in the past year?: No Nurse's Note: FB in right foot x 24 hours ago after steppin on a piece of porcelain bathtub. denies additional injuries, declines tetanus vaccine [facility] Medical History (Updated 05/08/24 @ 13:41 by Randal JONES PA) Acute foreign body of plantar aspect of right foot Seasonal allergies Hypothyroidism Migraines Frequent headaches Family History Mother Breast cancer Aunt Cancer Uncle Cancer Social History Smoking Status: Never smoker alcohol intake: never substance use type: does not use what type of physical activity do you participate in: none HPI HPI Chief Complaint: FB right foot Details: MARIA T BARRERA, is a 53 F who presents to the office today for initial evaluation right plantar foot foreign body retention. Patient states yesterday her and her were breaking up porcelain bathtub in order to take the house in the process and her barefoot stepped on a porcelain piece which was retained to the right plantar foot she has localized point tenderness palpation of the same which is aggravated touch and with weightbearing, alleviated minimally with sit/rest. No localized erythema or warmth or swelling or discharge, though patient would like to have the foreign body removed before it gets infected as as she states. Unknown last Td. PMH NC. No [id number] products taken to assist. No other associated symptoms and no other alleviating/aggravat ing factors. ROS Const Constitutional: No other (as above) Exam Const General: cooperative, healthy appearing and no acute distress Orientation: alert and awake Resp Effort Inspection: normal respiratory effort and able to speak in complete sentences Cardio Rate: regular rate Pulses: radial pulses present Skin General: other (Pinpoint open wound w/ palpable tender to R plantar foot; see procedure) Neuro General: patient alert and patient awake Cognition: normal cognition Speech: speech normal Extrem General: full ROM, capillary refill normal and normal exam except as noted (see skin exam and procedure) Psych Appearance: grossly normal Mental Status: mental status grossly normal Mood: congruent mood Affect: normal affect Speech and Movement: speech and movement normal Attitude: cooperative Office Procedures Inc/Rem of FB, SubQ tissue Time Out Consent Signed: No Time out checklist: patient, procedure, site marked/identified, positioning of patient, supplies available and allergies confirmed Procedure Performed By Procedure performed by: Randal Rosario Incision and Removal Incision and removal of FB, SubQ tissue: Incision and removal of FB, SUBQ tissue simple Provider Documentation Provider Documentation: Verbal consent given before procedure began. Procedure note: Right plantar foot wound site sterilely prepped and cleansed with Hibiclens and saline and field block with 2.5 mL of 1% lidocaine circumferential to the site. Cross-section incision of dermal depth with #11 blade exposing white foreign body which was removed w (more content not included)... Normal [facility] Internal Medicine Office Vis iton 05-07-2024 Internal Medicine Office Visit [facility] [address] [place] [address] [place] [address] OFFICE VISIT Date of Service: 05/07/24 MR#: [id number] Acct: [id number] Name: MARIA T BARRERA Rep #: [id number] : 1970 Provider: Dr. 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 Accompanied by: Self Is patient in pain?: No Allergies No Known Allergies Allergy (Verified 05/07/24 10:53) Medications ???Medication ???Instructions ???Recorded ???Confirmed ???Type desogestrel-e.estrad iol 0.15 1 tab PO QDAY 02/20/18 05/07/24 History mg-0.02 mg(21)/e.estrad 0.01 mg(5) tablet (Viorele (28)) cholecalciferol (vitamin D3) 50 50 mcg PO DAILY 12/29/20 05/07/24 History mcg (2,000 unit) capsule magnesium 250 mg tablet 250 mg PO DAILY 12/29/20 05/07/24 History omega-3 fatty acids 1,000 mg 1,000 mg PO DAILY 12/29/20 05/07/24 History capsule (Fish Oil Concentrate) vitamin B complex 1 tab PO DAILY 12/29/20 05/07/24 History collagen PO 06/03/21 05/07/24 History mecobalamin (vitamin B12) 5,000 5,000 mcg PO DAILY 01/26/23 05/07/24 History mcg chewable tablet zinc gluconate 50 mg tablet 50 mg PO DAILY 01/26/23 05/07/24 History levothyroxine 125 mcg tablet 125 mcg PO DAILY #90 tabs 01/30/24 05/07/24 Rx sumatriptan succinate 100 mg tablet 100 mg PO ONCE PRN migraine 01/30/24 05/07/24 Rx headache #9 tabs PFSH Medical History (Updated 05/07/24 @ 11:[address] Jovani Wheeler, DO) Seasonal allergies Hypothyroidism Migraines Frequent headaches Family History Mother Breast cancer Aunt Cancer Uncle Cancer Social History Smoking Status: Never smoker alcohol intake: never substance use type: does not use what type of physical activity do you participate in: none HPI HPI Chief Complaint: 6m f/u fmla Details: MARIA T BARRERA, is a 53 F who presents to the office today for a discussion of her migraine headaches and completion of her FMLA form. This patient is controlling her migraines on sumatriptan. She has been giving samples of her other medications at her previous appointment and they worked better than the sumatriptan but she could not afford the cost. She still misses 2 or 3 days of month because of the migraines but other than that her work history is good. ROS Const Constitutional: No body ache, chills, excessive sweating, fatigue, fever(s), frequent falls, headache(s), snoring, weakness or change in appetite Eyes Eyes: No blurry vision, change in vision, eye pain or Light sensitivity ENT ENT: No abnormal hearing, ear or mastoid pain, tinnitus, nasal congestion, headache(s), neck pain or sore throat Resp Respiratory: No cough, shortness of breath, snoring or wheezing Cardio Cardiology: No chest pain at rest, chest pain with exertion, excessive sweating, dyspnea on exertion, lightheadedness, orthopnea or palpitations Gastro GI: No abdominal pain, change in bowel habits, constipation, cramping, diarrhea, nausea/dyspepsia or vomiting Genitourinary-Female : No burning urination, painful urination, urinary incontinence or urinary frequency Musc Musculoskeletal: No abnormal gait, joint pain, back pain, limited range of motion, muscle weakness, neck pain or numbness Skin Skin: No dry skin, redness, lesions, itchy eyes, rash or wounds Neuro Neurology: No abnormal gait, abnormal hearing, weakness, frequent falls, headache(s), memory loss or numbness Psych Psychiatric: No anxiety, No change in appetite, No depression, No memory loss and No Thoughts of harming yourself/Others Endo Endocrine: No cold intolerance, excessive sweating, fatigue, flushing, heat intolerance, increased thirst/drinking or increased hunger Aller/Imm Allergy/Immunologic: No itchy eyes, seasonal allergy symptoms, hives or wheezing Rex/Lymp Hematologic/Lymphati c: No easy bleeding or easy bruising Exam Const General: cooperative and healthy appearing Nutritional Appearance: average body habitus [facility] Head: normal to inspection Eyes General: appearance normal, both eyes and all related structures Periorbital: periorbital findings normal Eyelids: eyelids normal Conjunctivae: conjunctivae normal Pupils: PERRL and normal by confront (more content not included)... Normal [facility] Basophil percentageOrdered B y: Jovani Brown on 11-01-2023 Bilirubin [Mass/Vol] 0.50 mg/dL 0.20-1.00 [facility] Comment on above: For patients on eltr ombopag therapy, use of Dimension [place] TBIL is not recommended. Chloride [Moles/Vol] 106 mmol/L 98-107 [facility] Cholesterol [Mass/Vol] 225 mg/dL <200 [facility] Comment on above: <200 mg/dL Desirable 200-240 mg/dL Borderline >240 mg/dL High Risk Glucose [Mass/Vol] 84 mg/dL 74-106 [facility] Potassium [Moles/Vol] 3.7 mmol/L 3.5-5.1 [facility] Protein [Mass/Vol] 7.4 g/dL 6.4-8.2 [facility] Sodium [Moles/Vol] 139 mmol/L 136-145 [facility] Triglyceride [Mass/Vol] 168 mg/dL <199 [facility] Comment on above: The drugs N-Acetylcy steine and Metamizole may falsely depress this assay.Serum Triglycerides Reference Interval Normal <150 mg/dL Borderline high 150 - 199 mg/dL High 200 - 499 mg/dL Very High > or = 500 mg/dL Laboratory - Chemistry and C hemistry - challengeOrdered By: Jovani Wheeler on 11-01-2023 ALP [Catalytic activity/Vol] 78 U/L 45-117 [facility] ALT [Catalytic activity/Vol] 27 U/L 13-56 [facility] CO2 [Moles/Vol] 26.0 mmol/L 21.0-32.0 [facility] Globulin (S) [Mass/Vol] 4.0 g/dL 2.2-4.2 [facility] Urea nitrogen/Creatinine [Mass ratio] 17.2 mg/mg 10-20 [facility] No Panel InformationOrdered By: Jovani Wheeler on 11-01-2023 Estimated GFR (MDRD) Amer 140 mL/min >60 [facility] Comment on above: GFR Calc Estimated GFR (MDRD) Non-Af Amer 116 mL/min >60 [facility] Comment on above: Non- GFR Calc Thyroid Stimulating Hormone (TSH) 2.55 uIU/mL 0.358-3.74 [facility] Serum or plasma albumin jose urement (mass/volume)Ordered By: Jovani Wheeler on 11-01-2023 Albumin [Mass/Vol] 3.4 g/dL 3.2-5.0 [facility] Serum or plasma albumin/glob ulin mass ratioOrdered By: Jovani Wheeler on 11-01-2023 Albumin/Globulin [Mass ratio] 0.8 {ratio} 0.9-2.4 [facility] Serum or plasma calcium jose urement (mass/volume)Ordered By: Jovani Wheeler on 11-01-2023 Calcium [Mass/Vol] 8.5 mg/dL 8.5-10.1 [facility] Serum or plasma cholesterol in HDL measurement (mass/volume)Ordered By: Jovani Wheeler on 11-01-2023 Cholesterol in HDL [Mass/Vol] 69 mg/dL >40 [facility] Comment on above: The drugs N-Acetylcy steine and Metamizole may falsely depress this assay. Reference Range HDL <40 mg/dL Low HDL Cholesterol HDL >or= 60 mg/dL High HDL Cholesterol Serum or plasma cholesterol in VLDL measurement (mass/volume)Ordered By: Jovani Wheeler on 11-01-2023 Cholesterol in VLDL [Mass/Vol] 34 mg/dL 5-40 [facility] Serum or plasma creatinine m easurement (mass/volume)Ordered By: Jovani Wheeler on 11-01-2023 Creatinine [Mass/Vol] 0.58 mg/dL 0.55-1.02 [facility] Comment on above: The validity of the calculated GFR & GFRAA in patients over 70 years has not been determined. Clinical correlation is essential. Serum or plasma low density lipoprotein (LDL) cholesterol measurement (mass/volume)Ordered By: Jovani Wheeler on 11-01-2023 Cholesterol in LDL [Mass/Vol] 122 mg/dL 0-130 [facility] Serum or plasma urea nitroge n measurement (mass/volume)Ordered By: Jovani Wheeler on 11-01-2023 Urea nitrogen [Mass/Vol] 10 mg/dL 7-18 [facility] Thin prep Papanicolaou smear with manual screeningOrdered By: Jovani Wheeler on 11-01-2023 Thin prep Papanicolaou smear with manual screening 24 U/L 15-37 [facility] Thin prep Papanicolaou smear with manual screening 7 5-15 [facility] Basophil percentageOrdered B y: Dr. Wheeler on 01-26-2023 Bilirubin [Mass/Vol] 0.40 mg/dL 0.20-1.00 [facility] Comment on above: For patients on eltr ombopag therapy, use of Dimension [place] TBIL is not recommended. Chloride [Moles/Vol] 107 mmol/L 98-107 [facility] Glucose [Mass/Vol] 105 mg/dL 74-106 [facility] Comment on above: Fasting Glucose resu lt from 100 to 125 mg/dL suggests IMPAIRED HOMEOSTASIS per A.D.A. criteria. Potassium [Moles/Vol] 3.5 mmol/L 3.5-5.1 [facility] Protein [Mass/Vol] 7.0 g/dL 6.4-8.2 [facility] Sodium [Moles/Vol] 138 mmol/L 136-145 [facility] Laboratory - Chemistry and C hemistry - challengeOrdered By: Dr. Wheeler on 01-26-2023 ALP [Catalytic activity/Vol] 68 U/L 45-117 [facility] ALT [Catalytic activity/Vol] 31 U/L 13-56 [facility] CO2 [Moles/Vol] 25.0 mmol/L 21.0-32.0 [facility] Free T4 [Mass/Vol] 1.22 ng/dL 0.76-1.46 [facility] Globulin (S) [Mass/Vol] 3.7 g/dL 2.2-4.2 [facility] Urea nitrogen/Creatinine [Mass ratio] 19.4 mg/mg 10-20 [facility] No Panel InformationOrdered By: Dr. Wheeler on 01-26-2023 Estimated GFR (MDRD) Amer 110 mL/min >60 [facility] Comment on above: GFR Calc Estimated GFR (MDRD) Non-Af Amer 91 mL/min >60 [facility] Comment on above: Non- GFR Calc Thyroid Stimulating Hormone (TSH) 1.84 uIU/mL 0.358-3.74 [facility] Serum or plasma albumin jose urement (mass/volume)Ordered By: Dr. Wheeler on 01-26-2023 Albumin [Mass/Vol] 3.3 g/dL 3.2-5.0 [facility] Serum or plasma albumin/glob ulin mass ratioOrdered By: Dr. Wheeler on 01-26-2023 Albumin/Globulin [Mass ratio] 0.9 {ratio} 0.9-2.4 [facility] Serum or plasma calcium jose urement (mass/volume)Ordered By: Dr. Wheeler on 01-26-2023 Calcium [Mass/Vol] 8.7 mg/dL 8.5-10.1 [facility] Serum or plasma creatinine m easurement (mass/volume)Ordered By: Dr. Wheeler on 01-26-2023 Creatinine [Mass/Vol] 0.72 mg/dL 0.55-1.02 [facility] Comment on above: The validity of the calculated GFR & GFRAA in patients over 70 years has not been determined. Clinical correlation is essential. Serum or plasma urea nitroge n measurement (mass/volume)Ordered By: Dr. Wheeler on 01-26-2023 Urea nitrogen [Mass/Vol] 14 mg/dL 7-18 [facility] Thin prep Papanicolaou smear with manual screeningOrdered By: Dr. Wheeler on 01-26-2023 Thin prep Papanicolaou smear with manual screening 17 U/L 15-37 [facility] Thin prep Papanicolaou smear with manual screening 6 5-15 [facility] Laboratory - Chemistry and C hemistry - challengeon 12-02-2021 Free T4 [Mass/Vol] 1.14 ng/dL 0.76-1.46 [facility] Work Phone: No Panel Informationon 12-02 Thyroid Stimulating Hormone (TSH) 4.45 uIU/mL 0.358-3.74 [facility] Work Phone: Vitamin D 25-Hydroxy 65.0 ng/mL [facility] Work Phone: Comment on above: Vitamin D 25(OH) Sta tus Range Deficiency <20 ng/mL (50nmol/L) Insufficiency 20 - 30 ng/mL (50 - 75 nmol/L) Sufficiency 30 - 100 ng/mL (75 - 250 nmol/L) Toxicity >100 ng/mL (>250 nmol/L) Vital Signs Date Time Vital Sign Value Performing Clinician Mariama berger 02-25-2025 15:00-0400 Body height 170.2 cm Corrine Sutherland COMPOUNDING PHARMACY TECHNICIAN.MASTER FIRE CONTROL TECHNICIAN Work Phone: [facility] 02-25-2025 15:00-0400 Body mass index (BMI) [Ratio] 26.31 kg/m2 Corrine [place] COMPOUNDING PHARMACY TECHNICIAN.MASTER FIRE CONTROL TECHNICIAN Work Phone: [facility] 02-25-2025 15:00-0400 Body weight 76.2 kg Corrine Koko COMPOUNDING PHARMACY TECHNICIAN.MASTER FIRE CONTROL TECHNICIAN Work Phone: [facility] 02-25-2025 15:00-0400 Diastolic blood pressure 76 mm[Hg] Corrine [place] COMPOUNDING PHARMACY TECHNICIAN.MASTER FIRE CONTROL TECHNICIAN Work Phone: [facility] 02-25-2025 15:00-0400 Systolic blood pressure 122 mm[Hg] Corrine Koko COMPOUNDING PHARMACY TECHNICIAN.MASTER FIRE CONTROL TECHNICIAN Work Phone: [facility] 02-20-2024 15:43-0400 Body height 167.6 cm Corrine [place] COMPOUNDING PHARMACY TECHNICIAN.MASTER FIRE CONTROL TECHNICIAN Work Phone: [facility] 02-20-2024 15:43-0400 Body mass index (BMI) [Ratio] 26.31 kg/m2 Corrine [place] COMPOUNDING PHARMACY TECHNICIAN.MASTER FIRE CONTROL TECHNICIAN Work Phone: [facility] 02-20-2024 15:43-0400 Body weight 73.94 kg Corrine Koko COMPOUNDING PHARMACY TECHNICIAN.MASTER FIRE CONTROL TECHNICIAN Work Phone: [facility] 02-20-2024 15:43-0400 Diastolic blood pressure 72 mm[Hg] Corrine [place] COMPOUNDING PHARMACY TECHNICIAN.MASTER FIRE CONTROL TECHNICIAN Work Phone: [facility] 02-20-2024 15:43-0400 Systolic blood pressure 128 mm[Hg] Corrine [place] COMPOUNDING PHARMACY TECHNICIAN.MASTER FIRE CONTROL TECHNICIAN Work Phone: [facility] 11-01-2023 14:27-0500 Body height 167.[address] Jovani Wheeler Work Phone: [facility] 11-01-2023 14:27-0500 Body mass index (BMI) [Ratio] 27.8 kg/m2 Dr. Jovani Wheeler Work Phone: [facility] 11-01-2023 14:27-0500 Body temperature 97.1 [degF] Dr. Jovani Wheeler Work Phone: [facility] 11-01-2023 14:27-0500 Body weight 78.[address] Jovani Wheeler Work Phone: [facility] 11-01-2023 14:27-0500 Diastolic blood pressure 84 mm[Hg] Dr. Jovani Wheeler Work Phone: [facility] 11-01-2023 14:27-0500 Heart rate 95 /min Dr. Jovani Wheeler Work Phone: [facility] 11-01-2023 14:27-0500 Respiratory rate 16 /min Dr. Jovani Wheeler Work Phone: [facility] 11-01-2023 14:27-0500 SaO2% (BldA) [Mass fraction] 99 % Dr. Jovani Wheeler Work Phone: [facility] 11-01-2023 14:27-0500 Systolic blood pressure 120 mm[Hg] Dr. Jovani Wheeler Work Phone: [facility] 01-26-2023 14:31-0400 Body height 167.[address] Jovani Wheeler Work Phone: [facility] 01-26-2023 14:31-0400 Body mass index (BMI) [Ratio] 26.6 kg/m2 Dr. Jovani Wheeler Work Phone: [facility] 01-26-2023 14:31-0400 Body temperature 98 [degF] Dr. Jovani Wheeler Work Phone: [facility] 01-26-2023 14:31-0400 Body weight 75.[address] Jovani Wheeler Work Phone: [facility] 01-26-2023 14:31-0400 Diastolic blood pressure 72 mm[Hg] Dr. Jovani Wheeler Work Phone: [facility] 01-26-2023 14:31-0400 Heart rate 88 /min Dr. Jovani Wheeler Work Phone: [facility] 01-26-2023 14:31-0400 Respiratory rate 16 /min Dr. Jovani Wheeler Work Phone: [facility] 01-26-2023 14:31-0400 SaO2% (BldA) [Mass fraction] 98 % Dr. Jovani Wheeler Work Phone: [facility] 01-26-2023 14:31-0400 Systolic blood pressure 120 mm[Hg] Dr. Jovani Wheeler Work Phone: [facility] 12-02-2021 11:34-0500 Body height 167.[address] Jovani Wheeler Work Phone: [facility] Work Phone: 12-02-2021 11:34-0500 Body mass index (BMI) [Ratio] 26.5 kg/m2 Dr. Jovani Wheeler Work Phone: [facility] Work Phone: 12-02-2021 11:34-0500 Body temperature 97.7 [degF] Dr. Jovani Wheeler Work Phone: [facility] Work Phone: 12-02-2021 11:34-0500 Body weight 74.[address] Jovani Wheeler Work Phone: [facility] Work Phone: 12-02-2021 11:34-0500 Diastolic blood pressure 68 mm[Hg] Dr. Jovani Wheeler Work Phone: [facility] Work Phone: 12-02-2021 11:34-0500 Heart rate 93 /min Dr. Jovani Wheeler Work Phone: [facility] Work Phone: 12-02-2021 11:34-0500 Respiratory rate 16 /min Dr. Jovani Wheeler Work Phone: [facility] Work Phone: 12-02-2021 11:34-0500 SaO2% (BldA) [Mass fraction] 98 % Dr. Jovani Wheeler Work Phone: [facility] Work Phone: 12-02-2021 11:34-0500 Systolic blood pressure 104 mm[Hg] Dr. Jovani Wheeler Work Phone: [facility] Work Phone: Encounters Encounter Date Encounter Type Care Provider Facility Start: 04-16-2025 ambulatory Jovani Wheeler Facilit y:[facility] Start: 02-26-2025 End: 02-26-2025 Telephone encounter Corrine Sutherland APRN.MASTER FIRE CONTROL TECHNICIAN Work Phone: OB/Gynecology Start: 02-25-2025 End: 02-25-2025 Patient encounter procedure Corrine Sutherland COMPOUNDING PHARMACY TECHNICIAN.MASTER FIRE CONTROL TECHNICIAN Work Phone: OB/Gynecology Comment on above: Encounter for gyneco logical examination (general) (routine) without abnormal findings (Primary Dx); Encounter for screening mammogram for breast cancer; Encounter for surveillance of contraceptive pills Start: 02-25-2025 End: 02-25-2025 Patient encounter status Corrine Sutherland COMPOUNDING PHARMACY TECHNICIAN.MASTER FIRE CONTROL TECHNICIAN Work Phone: [facility] Start: 02-25-2025 End: 02-25-2025 ambulatory CORRINE SUTHERLAND Facility:[facility] Start: 02-25-2025 Encounter for gynecological examination (general) (routine) without abnormal findings CORRINE SUTHERLAND [facility] Start: 11-06-2024 End: 11-06-2024 ambulatory Jovani Wheeler [facility] Start: 11-06-2024 End: 11-06-2024 ambulatory Jovani Wheeler Facility:[facility] Start: 05-08-2024 End: 05-08-2024 ambulatory Jovani Wheeler Facility:[facility] Start: 05-07-2024 End: 05-07-2024 ambulatory Jovani Wheeler Facility:[facility] Start: 02-20-2024 End: 02-20-2024 Patient encounter procedure Corrine Sutherland COMPOUNDING PHARMACY TECHNICIAN.MASTER FIRE CONTROL TECHNICIAN Work Phone: OB/Gynecology Comment on above: Encounter for gyneco logical examination (general) (routine) without abnormal findings (Primary Dx); Encounter for screening for human papillomavirus (HPV); Pap smear for cervical cancer screening; Encounter for surveillance of contraceptive pills Start: 02-20-2024 End: 02-20-2024 Patient encounter status Corrine Sutherland COMPOUNDING PHARMACY TECHNICIANPoonamMASTER FIRE CONTROL TECHNICIAN Work Phone: [facility] Start: 11-01-2023 End: 11-01-[address] Jovani Wheeler Work Phone: [facility] Work Phone: Start: 11-01-2023 End: 11-01-[address] Jovani Wheeler Work Phone: [facility] Work Phone: Start: 02-23-2023 End: 02-23-[address] Jovani Wheeler Work Phone: [facility] Work Phone: Start: 02-23-2023 End: 02-23-[address] Jovani Wheeler Work Phone: [facility] Start: 01-26-2023 End: 01-26-[address] Jovani Wheeler Work Phone: [facility] Medicine Start: 02-22-2022 End: 02-22-[address] Jovani Wheeler Work Phone: [facility] Start: 12-02-2021 End: 12-02-[address] Jovani Wheeler Work Phone: [facility] Procedures Date Procedure Procedure Detail Performing Clinician Start: 02-23-2023 Screening mammography Niyah Wheeler Work Phone: Start: 02-22-2022 Screening mammography Niyah Wheeler Work Phone: Plan of Treatment Date Care Activity Detail Author Start: 05-08-2034 Urine microalbumin profile DTaP,Tdap,Td Vaccine (3 - Td or Tdap) [facility] Start: 02-19-2029 Screening for malign ant neoplasm of cervix Cervical Cancer Screening [facility] Start: 12-28-2026 Urine microalbumin profile DTaP,Tdap,Td Vaccine (2 - Td or Tdap) [facility] Start: 02-26-2026 End: 02-26-2026 Patient encounter procedure 02/26/2026 3:00 PM EDT Office Visit OB/Gynecology [address] [place] [address] Corrine Sutherland, SHAHID.MASTER FIRE CONTROL TECHNICIAN [address] [place] [address] Annual OB/Gynecology Comment on above: Annual Start: 03-12-2025 Screening for malign ant neoplasm of breast Mammogram Screening [facility] Start: 02-24-2025 End: 02-24-2025 Patient encounter procedure 02/24/2025 9:00 AM EDT Office Visit OB/Gynecology [address] [place] [address] Corrine Sutherland, COMPOUNDING PHARMACY TECHNICIAN.MASTER FIRE CONTROL TECHNICIAN [address] [place] [address] Annual OB/Gynecology Comment on above: Annual Start: 06-30-2024 Covid-19 Vaccine ( season) Covid-19 Vaccine () [facility] Start: 06-30-2024 Influenza vaccination C [facility] Start: 02-24-2024 Screening for malign ant neoplasm of breast Mammogram Screening [facility] Start: 10-30-2023 Behavioral Health Screening Behavioral Health Screening [facility] Start: 06-30-2023 Covid-19 Vaccine ( season) Covid-19 Vaccine ( season) [facility] Start: 01-26-2023 Patient referral [facility] Work Phone: Start: 2022 Pneumococcal Vaccine : 50+ (1 of 1 - PCV) Pneumococcal Vaccine: 50+ (1 of 1 - PCV) [facility] Start: 2022 Shingrix Vaccine (1 of 2) Shingrix Vaccine (1 of 2) [facility] Start: 2017 Diabetes Screening Diabetes Screenin g [facility] Start: 2017 Lipid panel Lipid Screening [facility] Start: 2017 Screening for malign ant neoplasm of colon [facility] Start: 2002 Screening for malign ant neoplasm of cervix HPV Testing [facility] Start: 1993 Screening for malign ant neoplasm of cervix Pap Testing [facility] Start: 1991 Hepatitis B Vaccine (1 of 3 - 19+ 3-dose series) Hepatitis B Vaccine (1 of 3 - 19+ 3-dose series) [facility] Start: 1990 Anxiety Screening Anxiety Screening [facility] Start: 1990 Depression Screening Depression Scre ening [facility] Start: 1990 Hepatitis C screening Hepatitis C Sc reening [facility] Start: 1990 HIV screening HIV Screening [facility] PAP TEST PAP TEST Lab [facility] cedeno Encounter for gynecological examination (general) (routine) without abnormal findings Encounter for screening for human papillomavirus (HPV) Pap smear for cervical cancer screening 02/20/2024 4:09 PM EDT [facility] Work Phone: Patient referral [facility] Work Phone: Immunizations Immunization Date Immunization Notes Care Provider Benjamin torres 05-08-2024 tetanus toxoid, redu vi diphtheria toxoid, and acellular pertussis vaccine, adsorbed Corrine Koko COMPOUNDING PHARMACY TECHNICIAN.MASTER FIRE CONTROL TECHNICIAN Work Phone: [facility] 09-03-2019 Influenza, injectabl e, Madin [place] Canine Kidney, quadrivalent with preservative Corrine Koko COMPOUNDING PHARMACY TECHNICIAN.MASTER FIRE CONTROL TECHNICIAN Work Phone: [facility] 09-03-2019 influenza, injectabl e, quadrivalent, preservative free Dr. Jovani Wheeler Work Phone: [facility] 09-03-2019 influenza, seasonal, injectable Dr. Jovani Wheeler Work Phone: [facility] 09-03-2019 influenza virus vaccine, unspecified formulation Corrine [place] COMPOUNDING PHARMACY TECHNICIAN.MASTER FIRE CONTROL TECHNICIAN Work Phone: [facility] 07-27-2018 influenza, injectabl e, quadrivalent, preservative free Corrine Koko COMPOUNDING PHARMACY TECHNICIAN.MASTER FIRE CONTROL TECHNICIAN Work Phone: [facility] 10-10-2017 Influenza, injectabl e, Madin [place] Canine Kidney, preservative free, quadrivalent Corrine Koko COMPOUNDING PHARMACY TECHNICIAN.MASTER FIRE CONTROL TECHNICIAN Work Phone: [facility] 12-28-2016 tetanus toxoid, redu vi diphtheria toxoid, and acellular pertussis vaccine, adsorbed Dr. Jovani Wheeler Work Phone: [facility] 07-31-2009 influenza virus vaccine, whole virus Corrine Koko COMPOUNDING PHARMACY TECHNICIAN.MASTER FIRE CONTROL TECHNICIAN Work Phone: [facility] Payers Date Payer Category Payer Self-pay [id number] 2023 [employer] BLUE CARD PPO OOS [id number] 2023 Unknown [employer] BLUE CARD PPO OOS [id number] 2023-Present [phone] [place] [address] PPO [id number] 2023 Unknown [id number] Unknown [id number] Unknown [id number] Unknown [id number] Unknown [id number] Unknown [id number] Social History Date Type Detail Facility Start: 12-02-2021 End: 11-01-2023 Tobacco smoking status NHIS Unknown if ever smoked [facility] Start: 1970 Sex Assigned At Female W [facility] Start: 02-20-2024 Tobacco smoking stat us NHIS Never smoked tobacco [facility] Start: 02-20-2024 Tobacco use and exposure Smokeless tobacco non-user [facility] Start: 02-20-2024 End: 02-25-2025 Alcohol intake Current drinker of alcohol (finding) [facility] Start: 02-20-2024 End: 02-25-2025 History of Social function [facility] Start: 02-20-2024 End: 02-25-2025 Tobacco use panel [facility] National Score (1-100), lower number is lower risk 55 [facility] Start: 1970 Sex Assigned At Not on file C [facility] Telephone encounter Note 02-26-2025 Telephone Encounter - Rissa Rios LPN - 02/26/2025 4:53 PM EDT Note Date & Type Note Facility 02-26-2025 Telephone encount er Note Faxed signed Rx mammogram to [facility] [phone]. Rissa Rios LPN [facility] Note 02-26-2025 Telephone Encounter - Rissa Rios LPN - 02/26/2025 4:53 PM EDT Note Date & Type Note Facility 02-26-2025 Miscellaneous Notes Formattin g of this note might be different from the original. Faxed signed Rx mammogram to [facility] [phone]. Rissa Rios LPN documented in this encounter [facility] Progress note 02-25-2025 Note Date & Type Note Facility 02-25-2025 Note HNO ID: [id number] Author: CORRINE SUTHERLAND APRN.MASTER FIRE CONTROL TECHNICIAN Service: ? Author Type: Nurse Practitioner Type: Progress Notes Filed: 02/25/2025 15:24 Note Text: Patient declined clinical analystPoonam Live is a 54 year old who presents for an annual gynecologic exam without complaints. Postmenopausal: No. Menstrual cycle every 01/30/2025 28 day cycles with flow 1-2 days HRT use: N/A . Contraception: Pill HPV vaccine: No Last pap smear: 02/20/2024, normal HPV: 02/20/24 negative History of abnormal pap: Yes, 2003 Leep: Yes: 2003 Last mammogram: 2023 normal @ [facility] History of abnormal mammogram: No Pt reported Sexually active: Yes OB History Gravida2 Para2 Term2 Preterm0 AB0 Living2 SAB0 IAB0 Ectopic0 Multiple0 Live Births2 FAMILY HISTORY Problem Relation Age of Onset Breast Cancer Maternal Grandmother 40 other (lung disease) Maternal Grandfather smoker Skin Cancer Maternal Grandfather SOCIAL HISTORY Social History Tobacco Use Smoking status: Never Smokeless tobacco: Never Vaping Use Vaping status: Never Used Substance Use Topics Alcohol use: Yes Drug use: Never REVIEW OF SYSTEMS Abdomen: No abdominal pain, nausea, vomiting, diarrhea, or constipation. No bloating, early satiety, indigestion, or increased flatulence. Bladder: No dysuria, gross hematuria, urinary frequency, urinary urgency, or incontinence Breast: No breast lumps, nipple d/c, overlying skin changes, redness or skin retraction Allergies and current medication updated:Yes SENSITIVE EXAM: The sensitive examination was discussed with the Patient or Patient's Authorized Closing Supervisor. As applicable, any other physician, advance practice provider, medical student, or other health professional student that will be observing or involved in the sensitive examination for educational or training purposes was discussed with the Patient or Authorized Closing Supervisor. The Patient or Authorized Closing Supervisor has agreed to proceed with the sensitive examination. (Sensitive examination includes inspection and/or palpation of the breasts, pelvis, prostate and anorectal regions). EXAM: BP 122/76 Ht 5' 7 (1.70m) Wt 168 lb (76.2kg) LMP 01/31/2024 BMI 26.31 kg/(m2). GENERAL: pleasant, female in no apparent distress HEENT: Normocephalic, atraumatic, mucus membranes moist, and no lesions DERMATOLOGY: Normal, without lesions, non-icteric, and non-hirsute BREAST: soft, non-tender, symmetric, no dominant mass, normal nipple-areolar complex, no lymphadenopathy, and no nipple discharge CHEST: Normal inspiratory effort ABDOMEN: soft, non-tender, and no masses PELVIC: external genitalia normal, normal Bartholin's glands, urethra, Yeager's glands, no vulvar lesions, no cervical lesions, physiologic discharge present, normal appearing perineal body and perianal region BIMANUAL: uterus normal size, shape and consistency, no adnexal masses, and non-tender RECTOVAGINAL: deferred. NEURO: alert and oriented x3,exam grossly non-focal EXTREMITIES: normal ASSESSMENT/PLAN: 1) Health maintenance: Pap/HPV up to date. Mammogram ordered Nutrition, exercise and routine health maintenance exams reviewed. Calcium/Vitamin D supplementation information provided. Colon cancer screening: up to date with screening due 2027 2) Follow up one year or sooner as needed Corrine Sutherland APRN.[facility] History of Present illness Narrative 02-25-2025 Corrine Sutherland APRN.NITHIN - 02/25/2025 2:51 PM EDT Note Date & Type Note Facility 02-25-2025 History of Presen t illness Narrative Patient declined clinical analystPoonam Live is a 54 year old who presents for an annual gynecologic exam without complaints. Postmenopausal: No. Menstrual cycle every 01/30/2025 28 day cycles with flow 1-2 days HRT use: N/A . Contraception: Pill HPV vaccine: No Last pap smear: 02/20/2024, normal HPV: 02/20/24 negative History of abnormal pap: Yes, 2003 Leep: Yes: 2003 Last mammogram: 2023 normal @ [facility] History of abnormal mammogram: No Pt reported Sexually active: Yes OB History Gravida2 Para2 Term2 Preterm0 AB0 Living2 SAB0 IAB0 Ectopic0 Multiple0 Live Births2 FAMILY HISTORY Problem Relation Age of Onset Breast Cancer Maternal Grandmother 40 other (lung disease) Maternal Grandfather smoker Skin Cancer Maternal Grandfather SOCIAL HISTORY Social History Tobacco Use Smoking status: Never Smokeless tobacco: Never Vaping Use Vaping status: Never Used Substance Use Topics Alcohol use: Yes Drug use: Never REVIEW OF SYSTEMS Abdomen: No abdominal pain, nausea, vomiting, diarrhea, or constipation. No bloating, early satiety, indigestion, or increased flatulence. Bladder: No dysuria, gross hematuria, urinary frequency, urinary urgency, or incontinence Breast: No breast lumps, nipple d/c, overlying skin changes, redness or skin retraction Allergies and current medication updated:Yes SENSITIVE EXAM: The sensitive examination was discussed with the Patient or Patient's Authorized Closing Supervisor. As applicable, any other physician, advance practice provider, medical student, or other health professional student that will be observing or involved in the sensitive examination for educational or training purposes was discussed with the Patient or Authorized Closing Supervisor. The Patient or Authorized Closing Supervisor has agreed to proceed with the sensitive examination. (Sensitive examination includes inspection and/or palpation of the breasts, pelvis, prostate and anorectal regions). EXAM: BP 122/76 Ht 5' 7 (1.70m) Wt 168 lb (76.2kg) LMP 01/31/2024 BMI 26.31 kg/(m^2). GENERAL: pleasant, female in no apparent distress HEENT: Normocephalic, atraumatic, mucus membranes moist, and no lesions DERMATOLOGY: Normal, without lesions, non-icteric, and non-hirsute BREAST: soft, non-tender, symmetric, no dominant mass, normal nipple-areolar complex, no lymphadenopathy, and no nipple discharge CHEST: Normal inspiratory effort ABDOMEN: soft, non-tender, and no masses PELVIC: external genitalia normal, normal Bartholin's glands, urethra, Yeager's glands, no vulvar lesions, no cervical lesions, physiologic discharge present, normal appearing perineal body and perianal region BIMANUAL: uterus normal size, shape and consistency, no adnexal masses, and non-tender RECTOVAGINAL: deferred. NEURO: alert and oriented x3,exam grossly non-focal EXTREMITIES: normal ASSESSMENT/PLAN: 1) Health maintenance: Pap/HPV up to date. Mammogram ordered Nutrition, exercise and routine health maintenance exams reviewed. Calcium/Vitamin D supplementation information provided. Colon cancer screening: up to date with screening due 2027 2) Follow up one year or sooner as needed Corrine Sutherland APRN.CNP documented in this encounter [facility] History of Present illness Narrative 02-20-2024 Corrine Sutherland APRN.CNP - 02/20/2024 3:25 PM EDT Note Date & Type Note Facility 02-20-2024 History of Presen t illness Narrative Maria T is a 53 year old who presents for an annual gynecologic exam without complaints. Postmenopausal: No. Menstrual cycle every 24-26 days Flow 4 days HRT use: OCP. Last Pap: normal HPV: N/A History of abnormal pap: Yes leep 2003 Last mammogram: 2022 normal @ [facility] History of abnormal mammogram: No Sexually active: Yes Pain with intercourse: No Postcoital bleeding: No Hot flashes: No Night sweats: No OB History T2 L2 SAB0 IAB0 Ectopic0 Multiple0 Live Births2 Quality Assurance Consultant History LMP: 01/31/2024, Having periods Age at Menarche: Age at First : Age at Menopause: Quality Assurance Consultant History Comments: Sexual Activity: Yes; Male Contraception: Pill PAST MEDICAL HISTORY Diagnosis Date Abnormal glandular Papanicolaou smear of cervix 2004 Low thyroid stimulating hormone (TSH) level Migraine PAST SURGICAL HISTORY Procedure Laterality Date CERVIX UTERI CONIZA LP ELCTRO EXCI 2004 FAMILY HISTORY Problem Relation Age of Onset Breast Cancer Maternal Grandmother 40 other (lung disease) Maternal Grandfather smoker Skin Cancer Maternal Grandfather SOCIAL HISTORY Social History Tobacco Use Smoking status: Never Smokeless tobacco: Never Vaping Use Vaping Use: Never used Substance Use Topics Alcohol use: Yes Drug use: Never REVIEW OF SYSTEMS Abdomen: No abdominal pain, nausea, vomiting, diarrhea, or constipation. No bloating, early satiety, indigestion, or increased flatulence. Bladder: No dysuria, gross hematuria, urinary frequency, urinary urgency, or incontinence Breast: No breast lumps, nipple d/c, overlying skin changes, redness or skin retraction Allergies and current medication updated:Yes EXAM: BP 128/72 Ht 5' 6 (1.68m) Wt 163 lb (73.9kg) LMP 01/31/2024 BMI 26.32 kg/(m^2). GENERAL: pleasant, female in no apparent distress HEENT: Normocephalic, atraumatic, mucus membranes moist, and no lesions NECK: Supple, full range of motion, no adenopathy, and thyroid normal DERMATOLOGY: Normal, without lesions, non-icteric, and non-hirsute BREAST: soft, non-tender, symmetric, no dominant mass, normal nipple-areolar complex, no lymphadenopathy, and no nipple discharge CHEST: Normal inspiratory effort ABDOMEN: soft, non-tender, and no masses PELVIC: external genitalia normal, normal Bartholin's glands, urethra, Yeager's glands, no vulvar lesions, no cervical lesions, physiologic discharge present, normal appearing perineal body and perianal region BIMANUAL: uterus normal size, shape and consistency, no adnexal masses, and non-tender RECTOVAGINAL: deferred. NEURO: alert and oriented x3,exam grossly non-focal EXTREMITIES: normal ASSESSMENT/PLAN: 1) Health maintenance: Pap done with HPV. Mammogram ordered Mammogram up to date Nutrition, exercise and routine health maintenance exams reviewed. Calcium/Vitamin D supplementation information provided. Colon cancer screening: up to date with screening done in 2022 repeat in 5 yr 2) Follow up one year or sooner as needed Corrine Sutherland APRN.CNP documented in this encounter [facility] Evaluation note Note Date & Type Note Facility Evaluation note Diagnosis Onset Date Chronic low back pain chroni c Hypothyroidism chronic [facility] Work Phone: Evaluation note Note Date & Type Note Facility Evaluation note Diagnosis Onset Date Encounter for screening colonoscopy acute Lightheadedness acute Hypothyroidism chronic Migraines [facility] Work Phone: Evaluation note Note Date & Type Note Facility Evaluation note Diagnosis Onset Date Stress at home acute Hypothyroidism chronic Migraines [facility] Work Phone: Evaluation note Note Date & Type Note Facility Evaluation note Diagnosis Encounter for gynecological examination (general) (routine) without abnormal findings- Primary Encounter for screening for human papillomavirus (HPV) Special screening examination for human papillomavirus (HPV) Pap smear for cervical cancer screening Screening for malignant neoplasm of the cervix Encounter for surveillance of contraceptive pills Surveillance of previously prescribed contraceptive pill documented in this encounter [facility] Evaluation note Note Date & Type Note Facility Evaluation note Diagnosis Encounter for gynecological examination (general) (routine) without abnormal findings- Primary Encounter for screening mammogram for breast cancer Encounter for surveillance of contraceptive pills Surveillance of previously prescribed contraceptive pill documented in this encounter [facility] Chief Complaint and Reason for Visit Chief Complaint 6 M FU SCREENING Reason for Visit Chronic low back katerina n Hypothyroidism Chief Complaint 6 M FU SCREENING Reason for Visit Encounter for screen ing colonoscopy Lightheadedness Hypothyroidism Migraines Chief Complaint 6 M FU Reason for Visit Stress at home Hypothyroidism Migraines Family History No Family History Records Found Relationship Condition Age at Onset Recorded Date/T ryder mother Malignant neoplasm of breast Unknown aunt Malignant neoplasm Unknown uncle Malignant neoplasm Unknown Advance Directives No Advanced Directives Records Found Advance Directive Response Recorded Date/ Time Living Will No December 28, 2016 6:30am Power of Delivery Truck Driver No December 28 7 6:30am Advance Directive Response Recorded Date/ Time Living Will No December 28, 2016 5:30am Power of Delivery Truck Driver No December 28 7 5:30am Summary Purpose Additional Source Comments Goals (unrecognized section and content) Goals may be documented in a n alternate sectionGoals may be documented in an alternate sectionGoals may be documented in an alternate section Care Teams (unrecognized sec tion and content) Team Status: Active Member Role Status Dates Dr. Jovani Wheeler , DO Family Provider Active Dr. Jovani Wheeler , DO Primary Care Provider Active Team Status: Inactive Member Role Status Dates Dr. Jovani Wheeler , DO Primary Care Pr claraer, Attending Provider, Referring Provider Active Team Status: Inactive Member Role Status Dates Dr. Jovani Wheeler , DO Primary Care Provider, Attend ing Provider Active Team Status: Inactive Member Role Status Dates Dr. Jovani Wheeler , DO Primary Care Provider Active Maribel Rae NP-C Attending Provider, Referring Provi lg Active Source Comments (unrecognize d section and content) In the event this informatio n is protected by the Federal Confidentiality of Alcohol and Drug Abuse Patient Records regulations: The Federal rules restrict any use of the information to criminally investigate or prosecute any alcohol or drug abuse patient.[facility] the event this information is protected by the Federal Confidentiality of Alcohol and Drug Abuse Patient Records regulations: The Federal rules restrict any use of the information to criminally investigate or prosecute any alcohol or drug abuse patient.[facility] the event this information is protected by the Federal Confidentiality of Alcohol and Drug Abuse Patient Records regulations: The Federal rules restrict any use of the information to criminally investigate or prosecute any alcohol or drug abuse patient.[facility] Reason for Visit (unrecogniz ed section and content) Reason Comments Yearly Exam Reason Comments [facility] INFORMATION SOURCE (unrecogn ized section and content) DATE CREATED AUTHOR 03/06/2025 [facility] DATE CREATED AUTHOR AUTHOR'S ORGANIZ ATION 04/16/2025 [facility] FOR RECORDS PERTAINING TO PATIENTS WHO ARE OR HAVE BEEN ENROLLED IN A CHEMICAL DEPENDENCY/SUBSTANCEABUSE PROGRAM, SOME INFORMATION MAY BE OMITTED. This clinical summary was aggregated from multiple sources. Caution should be exercised in using it in the provision of clinical care. This summary normalizes information from multiple sources, and as a consequence, information in this document may materially change the coding, format and clinical context of patient data. In addition, data may be omitted in some cases. CLINICAL DECISIONS SHOULD BE BASED ON THE PRIMARY CLINICAL RECORDS. [facility] [employer] [facility]. provides no warranty or guarantee of the accuracy or completeness of information in this document.
== END | disposition home or self-care (01) ==
LOC: OPBI 11:46
PROVIDERS: PCP Family Medicine; Referring Provider Nurse Practitioner Family; Visit Provider Nurse Practitioner Family
DX: Z12.31 Encounter for screening mammogram for malignant neoplasm of breast (principal)
CPT/HCPCS: 77063; 77067